=== PATIENT | male | born 1970 | race Two or more races ===

== ENCOUNTER 2018-01-23 23:09 | Emergency (ER) | payer MEDICAID, OTHER ==
[~2018-01-23] VITALS: Ht 177.8 cm; Wt 74.8 kg
--- NOTE | 2018-01-23 23:15 | NUR ---
AMBULATED TO ROOM WITH STEADY GAIT HERE FOR "I FEEL HOT; DONT KNOW WHY; WAS SLEEPING AT TRAIN STATION; WOKE UP WITH SOME BLOOD ON CHIN"; DENIES JEROME/SI/HI/DRUGS/ETOH; APPEARS PARANOID. RAMIRO ANY MEDICAL C/O AT THSI TIME. RESP EVEN AND UNLABORED. PLAN OF CARE DISCUSSED AND AWAITS MD DE LEÓN.
[2018-01-24 00:20] VITALS: BP 143/78
--- NOTE | 2018-01-24 00:20 | NUR ---
LAB AT BEDSIDE.
--- NOTE | 2018-01-24 00:22 | NUR ---
PT AMBULATED TO NURSES' STAION MULTIPLE TIMES STATING "I WANNA GO HOME". AGREES TO SIGN AMA. STILL DENIES SI/HI. NOTFIED
[2018-01-24 00:32] LABS: BASOPHILS # (AUTO) 0.1 /CMM (0.0-0.2); BASOPHILS % (AUTO) 0.7 % (0.0-2.0); EOSINOPHILS % (AUTO) 1.7 % (0.0-6.0); HEMATOCRIT 40 % (39-51); HEMOGLOBIN 13.6 g/dL (13.5-17.5); LYMPHOCYTES # (AUTO) 1.8 /CMM (0.8-4.8); LYMPHOCYTES % (AUTO) 21.1 % (20.0-44.0); MEAN CORPUSCULAR HEMOGLOBIN 29 PG (26.0-33.0); MEAN CORPUSCULAR HGB CONC 34 g/dl (31.0-36.0); MEAN CORPUSCULAR VOLUME 87 fL (80-96); MONOCYTES # (AUTO) 0.5 /CMM (0.1-1.30); MONOCYTES % (AUTO) 6.3 % (2.0-12.0); NEUTROPHILS # (AUTO) 6.1 /CMM (1.8-8.9); NEUTROPHILS % (AUTO) 70.2 % (43.0-81.0); PLATELET COUNT (AUTO) 273 /CMM (150-450); RDW COEFFICIENT OF VARIATION 13.6 (11.5-15.0); RED BLOOD CELL COUNT(AUTO) 4.61 MIL/uL (4.5-6.0); WHITE BLOOD COUNT (AUTO) 8.6 K/uL (4.3-11.0)
[2018-01-24 00:37] LABS: APPEARANCE,URINE CLEAR (CLEAR); BILIRUBIN,URINE NEGATIVE (NEGATIVE); BLOOD, URINE TRACE Ery/uL (NEGATIVE); COLOR,URINE YELLOW (YELLOW); KETONES,URINE NEGATIVE (NEGATIVE); LEUKOCYTE ESTERASE ,URINE NEGATIVE (NEGATIVE); NITRITE, URINE NEGATIVE (NEGATIVE); PROTEIN,URINE NEGATIVE (NEGATIVE); UGLUCOSE NEGATIVE (NEGATIVE); UROBILINOGEN,URINE 0.2 EU/dL (0.2)
--- NOTE | 2018-01-24 00:39 | NUR ---
Patient does not wish to proceed with medical care recommended by Dr. LOWE ). Patient given information related to possible complications, up to and including , which could occur as a result of leaving the hospital at this time. Patient verbalizes understanding of risks involved due to leaving against medical advice. Patient has signed AMA form.
[2018-01-24 00:46] LABS: CALCIUM, SERUM 9.2 mg/dL (8.5-10.1); CARBON DIOXIDE 27 mmol/L (21-32); CHLORIDE 102 mmol/L (98-107); CREATININE 1.2 mg/dL (0.6-1.3); GLUCOSE 85 mg/dL (74-106); SODIUM SERUM 135 mmol/L (136-145); UREA NITROGEN, BLOOD 22 mg/dL (7-18)
[2018-01-24 00:47] LABS: BACTERIA,URINE Few /HPF (None Seen); MUCUS,URINE Moderate /LPF (None Seen); SPERM,URINE Few /HPF (None Seen); SQUAMOUS EPITHELIAL CELL,UR Rare /HPF (None Seen); WBC,URINE 0-2 /HPF (0-3)
[2018-01-24 00:52] LABS: ACETAMINOPHEN < 10 ug/ml (10-30); ALANINE AMINOTRANSFERASE 25 U/L (12-78); ALBUMIN 4.1 g/dL (3.4-5.0); ALCOHOL, BLOOD < 0 mg/dL (0-0); ALKALINE PHOSPHATASE 84 U/L (46-116); ASPARTATE AMINOTRANSFERASE 24 U/L (15-37); BILIRUBIN,DIRECT 0.2 mg/dL (0.0-0.2); SALICYLATE 0.5 mg/dL (2.8-20.0); TOTAL PROTEIN, SERUM 7.9 g/dL (6.4-8.2)
== END 2018-01-24 01:01 | disposition left against medical advice (07) ==
LOC: ER 23:09
DX: F60.0 Paranoid personality disorder (principal); F32.9 Major depressive disorder, single episode, unspecified
CPT/HCPCS: 36415; 80048; 80076; 80305; 80329; 81001; 85025; 99284; A4606; G0480 ×2; Z7610; 81000-TC

== ENCOUNTER 2018-01-24 01:56 | Emergency (ER) | payer MEDICAID ==
[~2018-01-24] VITALS: Ht 177.8 cm; Wt 79.4 kg
[2018-01-24 02:30] VITALS: BP 122/68
--- NOTE | 2018-01-24 04:09 | NUR ---
Patient discharged to home in stable condition after psych eval by Nikolas/CHIARA. Denies SI/HI or any medicla sx's. Resp even and unlabored. Written and verbal after care instructions given. Patient verbalizes understanding of instruction.
== END 2018-01-24 04:11 | disposition home or self-care (01) ==
LOC: ER 01:57
DX: F60.0 Paranoid personality disorder (principal); F15.10 Other stimulant abuse, uncomplicated; F32.9 Major depressive disorder, single episode, unspecified
CPT/HCPCS: A4606; Z7502; Z7610